=== PATIENT | male | born 2000 | race Caucasian/White ===

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

== ENCOUNTER 2019-03-22 05:47 | Emergency (ER) | payer BC ==
[~2019-03-22] VITALS: Ht 182.9 cm; Wt 60.6 kg
[2019-03-22 07:29] VITALS: BP 115/62
== END 2019-03-22 07:31 | disposition home or self-care (01) ==
LOC: ED 06:57
DX: K52.9 Noninfective gastroenteritis and colitis, unspecified (principal)
CPT/HCPCS: 99283; Q0162